=== PATIENT | male | born 1950 | race Caucasian/White ===

== ENCOUNTER 2017-02-01 16:42 | Emergency (ER) | payer OTHER ==
--- NOTE | ~2017-02-01 | ER ---
PATIENT'S NAME: JAJA DENNIS [facility] AGE: 67 Y [address] ROOM: [place] [address] LOCATION: [facility] ADMIT DATE: 02/01/2017 ER/Outpatient Report DISCHARGE DATE: 02/01/2017 FAMILY PHYSICIAN: PHYSICIAN, NO ATTENDING PHYSICIAN: Puma Pham Time of Arrival: 1650 hours. Time of Evaluation: 1650 hours. CHIEF COMPLAINT: Left leg injury. HISTORY OF PRESENT ILLNESS: The patient states approximately 2 hours prior to arrival, he was kicked in the left lateral thigh area by a steer. It is painful when he walks. Otherwise, it does not cause any troubles. Denies any other injury with the incident. Denies any numbness or tingling of his feet. ALLERGIES: NO KNOWN ALLERGIES. MEDICATIONS: No current medications. PAST MEDICAL HISTORY: Benign. PAST SURGICAL HISTORY: Hernia repair. SOCIAL HISTORY: Denies use of tobacco or drugs. Does drink alcohol just on rare occasion. REVIEW OF SYSTEMS: Negative other than those mentioned in the HPI. PHYSICAL EXAMINATION: VITAL SIGNS: Weight 85 kg, blood pressure was 144/87, pulse of 87, respirations 20, temperature of 99, O2 saturation was 96% on room air. GENERAL: He is awake, alert, and oriented x4. SKIN: Lares, warm, and dry. RESPIRATIONS: Even and nonlabored. Lung sounds were clear throughout. HEART: Regular rate and rhythm. The patient has an abrasion to the left lateral thigh area. Strong pedal pulses. PATIENT'S NAME: JAJA DENNIS [facility] AGE: 67 Y [address] ROOM: [place] [address] LOCATION: [facility] ADMIT DATE: 02/01/2017 ER/Outpatient Report DISCHARGE DATE: 02/01/2017 FAMILY PHYSICIAN: PHYSICIAN, NO ATTENDING PHYSICIAN: Puma Pham EMERGENCY DEPARTMENT COURSE: X-ray was completed. No bony abnormality is seen. IMPRESSION: Contusion of the left thigh. PLAN: Home, rest, ice, elevate. Tylenol or ibuprofen as needed. Recheck with his primary provider in next 2 to 3 days if symptoms persist or worsen. He verbalized understanding. MICHA BULLOCK DO DJ/sameera /[id number] d: 02/01/17 2323 t: 02/04/17 0206, OUTPATIENT REPORT
== END 2017-02-01 17:26 | disposition disaster alternative care site (69) ==
LOC: GACC 16:42
DX: S70.12XA Contusion of left thigh, initial encounter (principal); Z98.890 Other specified postprocedural states; W55.82XA Struck by other mammals, initial encounter